=== PATIENT | male | born 1995 | race American Indian/Alaskan Native ===

== ENCOUNTER 2017-01-26 14:17 | Emergency (ER) | payer BC, MEDICAID ==
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
== END 2017-01-26 15:34 | disposition home or self-care (01) ==
LOC: DL.ED 14:17
DX: S02.32XA Fracture of orbital floor, left side, initial encounter for closed fracture (principal); Y04.0XXA Assault by unarmed brawl or fight, initial encounter
CPT/HCPCS: 70486; 99283

== ENCOUNTER 2018-07-05 19:21 | Emergency (ER) | payer SELFPAY ==
--- NOTE | 2018-07-05 20:07 | EDM.PDOC ---
ED HPI GENERAL MEDICAL PROBLEM - General Chief Complaint: General Stated Complaint: FELL, HURT RIBS ON RT SIDE Time Seen by Provider: 07/05/18 20:06 Source of Information: Reports: Patient History Limitations: Reports: No Limitations - History of Present Illness INITIAL COMMENTS - FREE TEXT/NARRATIVE: fell 2 days ago onto right ribs. Left Chest Pain Score (Numeric/FACES): 6 - Related Data Allergies Allergy/AdvReac Type Severity Reaction Status Date / Time No Known Allergies Allergy Verified 07/05/18 20:04 Home Meds: Home Meds Escitalopram Oxalate 20 mg PO DAILY 01/26/17 [History] buPROPion [Wellbutrin] 100 mg PO BID 07/05/18 [History] Past Medical History - Past Health History Medical/Surgical History: Denies Medical/Surgical History - Past Surgical History HEENT Surgical History: Reports: Other (See Below) Other HEENT Surgeries/Procedures: wisdom teeth Social & Family History - Tobacco Use Smoking Status *Q: Never Smoker - Caffeine Use Caffeine Use: Reports: Coffee, Energy Drinks, Soda - Recreational Drug Use Recreational Drug Use: No - Living Situation & Occupation Living situation: Reports: with Family Occupation: Employed ED ROS GENERAL - Review of Systems Review Of Systems: ROS reveals no pertinent complaints other than HPI. ED EXAM, GENERAL - Physical Exam Exam: See Below Exam Limited By: No Limitations General Appearance: Alert, WD/WN, Mild Distress, Other (discomfort) Ears: Hearing Grossly Normal Throat/Mouth: Normal Voice, No Airway Compromise Head: Atraumatic Neck: Non-Tender, Full Range of Motion Respiratory/Chest: No Respiratory Distress, Other (tender right subcostal margin , no E/C) Cardiovascular: Regular Rate, Rhythm GI/Abdominal: Soft, Non-Tender Neurological: Alert, Oriented, Normal Cognition, Normal Gait, No Motor/Sensory Deficits Psychiatric: Normal Affect, Normal Mood Skin Exam: Warm, Dry, Normal Color Lymphatic: No Adenopathy Course - Vital Signs Last Recorded V/S: Last Vital Signs Temp 37.7 C 07/05/18 20:01 Pulse 96 07/05/18 20:01 Resp 18 07/05/18 20:01 BP 163/99 H 07/05/18 20:01 Pulse Ox 99 07/05/18 20:01 Departure - Departure Time of Disposition: 20:59 Disposition: Home, Self-Care 01 Condition: Good Clinical Impression: Contusion of rib on right side Qualifiers: Encounter type: initial encounter Qualified Code(s): S20.211A - Contusion of right front wall of thorax, initial encounter - Discharge Information Instructions: Contusion, [id number] Forms: ED Department Discharge Additional Instructions: 1) avoid lifting bending straining 2) follow up at clinic rx togo; vicodin 5/325mg x 1
[2018-07-05] MEDS ORDERED: Acetaminophen/HYDROcodone 325-5 MG Tab ONE (20:58)
== END 2018-07-05 21:05 | disposition home or self-care (01) ==
LOC: DL.ED 19:21
DX: S20.211A Contusion of right front wall of thorax, initial encounter (principal); Z79.899 Other long term (current) drug therapy; W18.30XA Fall on same level, unspecified, initial encounter
CPT/HCPCS: 71101-RT; 99283; 99283-25

== ENCOUNTER 2020-06-18 01:09 | Emergency (ER) | payer BC ==
[2020-06-18] MEDS ORDERED: MVI, Adult with Vitamin K 10 ML, Folic Acid 1 MG, Thiamine 100 MG in Lactated Ringers 1... IV ONE ×4 (01:16)
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
[2020-06-18 01:47] LABS: ANION GAP 17.3 mEq/L (7-13); CHLORIDE,CL 104 mmol/L (98-107); SODIUM,NA 144 mmol/L (136-145)
== END 2020-06-18 04:48 ==
LOC: DL.ED 01:09
DX: F10.120 Alcohol abuse with intoxication, uncomplicated (principal); Y90.8 Blood alcohol level of 240 mg/100 ml or more; Z79.899 Other long term (current) drug therapy
CPT/HCPCS: 36415; 80053; 80305; 80307; 81003; 85025; 96365; 99283; 99284; J3411; J7120; J3490

== ENCOUNTER 2021-08-11 01:37 | Emergency (ER) | payer BC ==
[2021-08-11] MEDS ORDERED: Sodium Chloride 0.9% 1,000 ML IV ONE ×2 (01:50→03:09)
[2021-08-11] MEDS ORDERED: Sodium Chloride 0.9% 10 ML Syringe FLUSH PRN (01:50)
[2021-08-11 02:31] LABS: ANION GAP 19.9 mEq/L (7-13); CHLORIDE,CL 97 mmol/L (98-107); SODIUM,NA 136 mmol/L (136-145)
[2021-08-11 03:04] LABS: AMPHETAMINES,URINE NEGATIVE (NEGATIVE); BARBITURATES,URINE NEGATIVE (NEGATIVE); BENZODIAZEPINE,URINE NEGATIVE (NEGATIVE); MDMA (ECSTASY), URINE NEGATIVE (NEGATIVE); METHADONE,URINE NEGATIVE (NEGATIVE); METHAMPHETAMINES,URINE NEGATIVE (NEGATIVE); OPIATES,URINE NEGATIVE (NEGATIVE); OXYCODONE,URINE NEGATIVE (NEGATIVE); PHENCYCLIDINE,URINE NEGATIVE (NEGATIVE); TCA,URINE NEGATIVE (NEGATIVE)
[2021-08-11] MEDS ORDERED: cloNIDine 0.1 MG Tab PO ONE (03:10)
== END 2021-08-11 04:17 ==
LOC: DL.ED 01:37
DX: F10.10 Alcohol abuse, uncomplicated (principal); R00.0 Tachycardia, unspecified; R03.0 Elevated blood-pressure reading, without diagnosis of hypertension; Z79.899 Other long term (current) drug therapy
CPT/HCPCS: 36415; 80053; 80305; 80307; 85025; 96360; 96361; 99284; A9270; J3490; J7030

== ENCOUNTER 2024-02-26 22:49 | Emergency (ER) | payer BC, OTHER | END 2024-02-26 23:47 | LOC: DL.ED 22:49 | DX: F10.129 Alcohol abuse with intoxication, unspecified (principal) | CPT/HCPCS: 99284 ==

== ENCOUNTER 2024-06-09 21:12 | Emergency (ER) | payer BC, MEDICAID ==
[2024-06-09 22:17] LABS: BASOPHILS PERCENT AUTO 0.4 % (0.0-1.0); EOSINOPHILS PERCENT AUTO 4.6 % (1.0-3.0); HEMATOCRIT 48.1 % (40.0-54.0); HEMOGLOBIN 16.4 g/dL (14.0-18.0); LYMPHOCYTES PERCENT AUTO 48.6 % (20.5-50.1); MEAN CORPUSCULAR HGB CONC 34.1 g/dL (33.0-35.0); MEAN CORPUSCULAR VOLUME 88.1 fL (80-100); MONOCYTES PERCENT AUTO 11.1 % (2-8); NEUTROPHILS PERCENT AUTO 35.3 % (42.2-75.2); PLATELET COUNT,PLT 318 10^3/uL (150-450); RED BLOOD CELL COUNT 5.46 10^6/uL (4.6-6.2); WHITE BLOOD CELL COUNT,WBC 8.4 10^3/uL (5.0-10.0)
[2024-06-09 22:47] LABS: A/G RATIO 0.9; ALBUMIN 3.8 g/dL (3.4-5.0); ANION GAP 17.3 mEq/L (7-13); BILIRUBIN TOTAL 0.3 mg/dL (0.2-1.0); BUN/CREATININE RATIO 10.2 (No establ ref range); CALCIUM 8.7 mg/dL (8.5-10.1); CREATININE 1.08 mg/dL (0.70-1.30); EST CRCL DRUG DOSING (CG) 100.92 mL/min; MAGNESIUM 2.4 mg/dL (1.8-2.4); POTASSIUM,K 3.3 mmol/L (3.5-5.1); TSH ULTRASENSITIVE 1.08 uIU/mL (0.36-3.74)
[2024-06-09] MEDS: LORazepam 1 MG Tab PO ONE (23:07)
[2024-06-09 23:18] LABS: APPEARANCE,URINE CLEAR (CLEAR); BILIRUBIN,URINE NEGATIVE (NEGATIVE); COLOR,URINE YELLOW (YELLOW); GLUCOSE,URINE 100 (NEGATIVE); KETONES,URINE NEGATIVE (NEGATIVE); LEUKOCYTE ESTERASE,URINE NEGATIVE (NEGATIVE); NITRITE,URINE NEGATIVE (NEGATIVE); OCCULT BLOOD,URINE NEGATIVE (NEGATIVE); PROTEIN,URINE NEGATIVE (NEGATIVE); UROBILINOGEN,URINE 0.2 mg/dL (0.2-1.0)
[2024-06-09 23:19] LABS: AMPHETAMINES,URINE NEGATIVE (NEGATIVE); BARBITURATES,URINE NEGATIVE (NEGATIVE); BENZODIAZEPINE,URINE NEGATIVE (NEGATIVE); MDMA (ECSTASY), URINE NEGATIVE (NEGATIVE); METHADONE,URINE NEGATIVE (NEGATIVE); METHAMPHETAMINES,URINE NEGATIVE (NEGATIVE); OPIATES,URINE NEGATIVE (NEGATIVE); OXYCODONE,URINE NEGATIVE (NEGATIVE); PHENCYCLIDINE,URINE NEGATIVE (NEGATIVE); TCA,URINE NEGATIVE (NEGATIVE)
[2024-06-10] MEDS: Folic Acid 1 MG Tab PO ONE (08:35)
[2024-06-10] MEDS: Thiamine 100 MG Tab PO ONE (08:35)
[2024-06-10] MEDS: Gabapentin 300 MG Cap PO ONE ×2 (08:35→15:06)
[2024-06-10] MEDS: Multivitamin Tab PO SCH (08:35)
== END 2024-06-10 19:15 ==
LOC: DL.ED 21:12
DX: F32.A Depression, unspecified (principal); F10.220 Alcohol dependence with intoxication, uncomplicated; R45.851 Suicidal ideations; F17.210 Nicotine dependence, cigarettes, uncomplicated; Z79.899 Other long term (current) drug therapy
CPT/HCPCS: 36415; 80053; 80305; 80307; 81003; 83690; 83735; 84443; 85025; 87428; 99284; 99285; A9270

== ENCOUNTER 2024-11-18 16:12 | Emergency (ER) | payer BC, MEDICAID ==
[2024-11-18 16:54] LABS: BASOPHILS PERCENT AUTO 0.4 % (0.0-1.0); EOSINOPHILS PERCENT AUTO 6.5 % (1.0-3.0); LYMPHOCYTES PERCENT AUTO 36.1 % (20.5-50.1); MONOCYTES PERCENT AUTO 11.5 % (2-8); NEUTROPHILS PERCENT AUTO 45.5 % (42.2-75.2); PLATELET COUNT,PLT 266 10^3/uL (150-450); RED BLOOD CELL COUNT 5.23 10^6/uL (4.6-6.2); WHITE BLOOD CELL COUNT,WBC 7.7 10^3/uL (5.0-10.0)
[2024-11-18 17:15] LABS: A/G RATIO 1.2; ALANINE AMINOTRANSFERASE,ALT 78.0 U/L (16-63); ASPARTATE AMNIOTRANSFERASE,AST 24.0 U/L (15-37); BILIRUBIN TOTAL 0.5 mg/dL (0.2-1.0); BLOOD UREA NITROGEN,BUN 8.0 mg/dL (7-18); CARBON DIOXIDE,CO2 28.0 mmol/L (21-32); CHLORIDE,CL 104.0 mmol/L (98-107); CREATININE 1.01 mg/dL (0.70-1.30); EST CRCL DRUG DOSING (CG) 111.43 mL/min; ESTIMATED GFR 103.0 mL/min (>=60); GLUCOSE RANDOM 163.0 mg/dL (70-99); POTASSIUM,K 3.9 mmol/L (3.5-5.1); PROTEIN TOTAL,TP 8.0 g/dL (6.4-8.2); SODIUM,NA 142.0 mmol/L (136-145)
== END 2024-11-18 18:11 | disposition home or self-care (01) ==
LOC: DL.ED 16:12
DX: K62.5 Hemorrhage of anus and rectum (principal); Z79.899 Other long term (current) drug therapy
CPT/HCPCS: 36415; 80053; 85025; 96360; 99283; A9270; J7030